=== PATIENT | male | born 1965 | race Two or more races ===

== ENCOUNTER 2017-08-02 11:37 | Emergency (ER) | payer OTHER ==
[~2017-08-02] VITALS: Ht 188 cm; Wt 104.5 kg
[~2017-08-02 11:37] MED LIST: ASPIRIN E.C.81 M1 PO; PROPRANOLOL HC120 MG PO; TRICOR145 MG PO; ZESTRIL,PRINIVI20 MG PO
[2017-08-02 12:17] LABS: APPEARANCE SL.HAZY ((CLEAR)); BILIRUBIN NEGATIVE; BLOOD LARGE; COLOR YELLOW ((YELLOW)); GLUCOSE (STRIP) NEGATIVE; KETONES 5; LEUKOCYTES NEGATIVE; NITRITE NEGATIVE; PROTEIN (STRIP) 30; SPECIFIC GRAVITY 1.024 (1.000-1.030); UROBILINOGEN 0.2 MG/DL (0.2-1.0)
[2017-08-02 12:26] LABS: BACTERIA NONE SEEN /HPF; EPITHELIAL CELLS RARE /HPF; MUCUS TRACE /LPF; RED BLOOD CELLS TNTC /HPF (0-5); UCUL ADDED? YES; WHITE BLOOD CELLS 0-5 /HPF (0-5)
[2017-08-02 12:38] LABS: HEMATOCRIT 43.2 % (38.0-50.0); HEMOGLOBIN 14.8 G/DL (12.5-16.6); MCH 29.3 PG (29.0-34.0); MCHC 34.3 G/DL (30.0-36.0); MCV 85.5 FL (86-99); PLATELET COUNT 251 K/uL (156-360); RBC DIS.WIDTH-CV 13.1 % (11.8-14.6); RBC DIS.WIDTH-SD 40.4 % (39-53); RED BLOOD COUNT 5.05 M/uL (4.00-5.50); WHITE BLOOD COUNT 9.4 K/uL (4.1-10.2)
[2017-08-02 13:06] LABS: ALBUMIN 4.5 g/dL (3.2-4.8); CHLORIDE 107 mEq/L (99-109); POTASSIUM 4.3 mEq/L (3.7-5.4); SODIUM 139 mEq/L (136-147)
[2017-08-02 13:09] LABS: GLUCOSE 130 mg/dL (70-99); TOTAL PROTEIN 7.8 g/dL (6.4-8.3)
[2017-08-02 13:11] LABS: TOTAL BILIRUBIN 0.7 mg/dL (0.0-1.0)
[2017-08-02 13:12] LABS: ALKALINE PHOSPHATASE 77 IU/L (3-129); GFR ESTIMATE (CALCULATED) > 59 mL/min/ (58.99-99999)
[2017-08-02 13:13] LABS: UREA NITROGEN (BUN) 18 mg/dL (9-23)
[2017-08-02 13:14] LABS: AST (GOT) 20 IU/L (2-34)
[2017-08-02 13:15] LABS: ALT (GPT) 23 IU/L (3-49)
[2017-08-02 13:16] LABS: LIPASE 22 U/L (1.0-51.0)
[2017-08-02] MEDS ORDERED: TORADOL10 MG PO (14:49)
[2017-08-02] MEDS ORDERED: PERCOCET 5/31 TABLET PO (14:49)
[2017-08-02] MEDS ORDERED: ZOFRAN4 MG PO (14:49)
[2017-08-02] MEDS ORDERED: FLOMAX0.4 MG PO (14:49)
[2017-08-02 15:24] VITALS: BP 135/83
== END 2017-08-02 15:28 | disposition home or self-care (01) ==
LOC: EME 11:37
PROVIDERS: Emergency Medicine
DX: N13.2 Hydronephrosis with renal and ureteral calculous obstruction (principal); I10 Essential (primary) hypertension; E78.5 Hyperlipidemia, unspecified; G43.909 Migraine, unspecified, not intractable, without status migrainosus; F43.10 Post-traumatic stress disorder, unspecified; Z79.82 Long term (current) use of aspirin
CPT/HCPCS: 74177; 80053; 81003; 83690; 85027; 87086; 93005; 99281; 99285; J1885; J2405; J3010; J7030